=== PATIENT | female | born 1965 | race Caucasian/White ===

== ENCOUNTER 2016-09-23 08:27 | Day surgery (SDC) | payer OTHER ==
[~2016-09-23] VITALS: Ht 175.3 cm; Wt 118.0 kg
[~2016-09-23 08:27] MED LIST: 0.9% Sodium Chloride 1,000 ML IV SCH; ALBU8.5H2 INHALATION; FLUT15.815 NS; LOPE-147 PO; Sodium Chloride LOK Flush 10 mL Syringe IV PRN; ZAFI20TA14 PO; fentaNYL-PF 50 mCg/mL 2 mL Inj IVPUSH PRN
[2016-09-23 09:11] VITALS: BP 117/67; PULSE 73; RESP 14; O2SAT 97
--- NOTE | 2016-09-23 10:21 | PCM.ENDCOL ---
Colonoscopy Date of Service: Sep 23, 2016 Physician Darinel Lawton MD Pre Procedure Diagnosis: Screening Post Procedure Dx & Findings: Polyp hemorrhoids diverticuli Procedure Colonoscopy Prep adequate Withdrawal time 13 minutes After unremarkable rectal examination the Olympus video colonoscope was inserted patient's anal canal and was advanced to cecum. Landmarks were identified including the ileocecal valve and appendiceal orifice. Scope was withdrawn systematically. Visualized colonic mucosa showed healthy shiny mucosa with normal healthy-appearing vasculature. In the ascending colon, there was a 3 mm polyp that she was removed completely using cold snare. In the rectosigmoid junction, there were three 1 mm polyps which were all removed completely using cold forceps. In the sigmoid colon there were a few small diverticuli. In the rectum retroflexion was done which showed hemorrhoids. Anal canal was inspected carefully on the way out and hemorrhoids noted. Impression Polyps 4 status post complete removal Diverticuli Hemorrhoids Recommendation Repeat colonoscopy 3 years Diverticular diet Presedation Assessment Risks and Benefits Informed consent was obtained from the patient after all risks and benefits including but not limited to drug reaction, infection, pain, bleeding, perforation, as well as alternatives were discussed. Patient monitoring Continuous pulse oximetry, cardiac monitoring, blood pressure monitoring, IV access, and oxygen at 2L per nasal cannula. Periprocedural Fentanyl: Fentanyl 125mcg Incrementally Midazolam: Midazolam 7mg Incrementally Complications There were no periprocedural complications identified. Post Procedure Plan Post Procedure Recommendations 1. Restrict activities today. 2. Resume normal activities in the morning. 3. Resume medications. 4. Patient informed of normal post procedure side effects as bloating, drowsiness, blood streaking in the stool. 5. average risk CRCS. If colon polyps come back as: -Hyperplastic- can repeat colonoscopy in 10 years -Tubular adenoma- repeat colonoscopy in 5 years -Tubulovillous/villous adenoma- repeat colonoscopy in 3 years -If any dysplasia- return to clinic as soon as possible 6. Please don't hesitate to call me with any questions. Darinel Lawton MD Sep 23, 2016 10:21
[2016-09-23 10:28] VITALS: BP 97/62; PULSE 65; RESP 16; O2SAT 96
[2016-09-23 10:38] VITALS: BP 102/60; PULSE 65; RESP 14; O2SAT 96
[2016-09-23 10:43] VITALS: BP 102/71; PULSE 66; RESP 14; O2SAT 96
--- NOTE | 2016-09-24 13:53 | PATH ---
SURGICAL PATHOLOGY Attending Physician:Darinel Lawton M.D. CASE STATUS: Signed Out PATIENT NAME: NUBIA SHERWOOD PID: [id number] : 1965 DATE COLLECTED:09/23/2016 17:44 SPECIMEN: 1: Colon, Biopsy 2: Colon, Biopsy CLINICAL HISTORY: 1). ASCENDING POLYP 2). RECTAL/SIGMOID POLYP FINAL DIAGNOSIS: 1.ASCENDING COLON POLYP: SESSILE SERRATED ADENOMA. 2.RECTAL/SIGMOID COLON POLYP: HYPERPLASTIC POLYP. ICD10 CODE D12.6 GROSS DESCRIPTION: The specimen is received in two formalin filled containers labeled with the patient's name. 1). The specimen is sublabeled "ascending polyp" and consists of 3 portions of tissue which aggregate to 0.3 x 0.3 x 0.3 CM. The specimen is entirely submitted in cassette 1A. 2). The specimen is sublabeled "rectal/sigmoid polyp" and consists of 4 portions of tissue which aggregate to 0.4 x 0.4 x 0.3 CM. The specimen is entirely submitted in cassette 2A. 09/23/2016 [facility] MICRO DESCRIPTION: See diagnosis. ICD-9 CODES: CPT CODES: 1: 92400 2: 77961 Electronically Signed Out Tyrone Ibarar MD [facility] [address], [place] [address] Technical component performed at [facility], [facility] [address], [place], [address]
== END 2016-09-23 23:59 | disposition home or self-care (01) ==
LOC: END 08:27
PROVIDERS: ATTEND Internal Medicine
DX: Z12.11 Encounter for screening for malignant neoplasm of colon (principal); D12.2 Benign neoplasm of ascending colon; K62.1 Rectal polyp; K58.0 Irritable bowel syndrome with diarrhea; K64.9 Unspecified hemorrhoids
CPT/HCPCS: 45380; 45385; 88305; 99153; G0500; J2250; J3010; J7030

== ENCOUNTER 2017-04-23 13:59 | Emergency (ER) | payer OTHER ==
[~2017-04-23] VITALS: Ht 175.3 cm; Wt 116.8 kg
[~2017-04-23 13:59] MED LIST changes: -0.9% Sodium Chloride 1,000 ML IV SCH; -Sodium Chloride LOK Flush 10 mL Syringe IV PRN; -fentaNYL-PF 50 mCg/mL 2 mL Inj IVPUSH PRN
[2017-04-23 14:02] VITALS: BP 120/80; PULSE 80; RESP 24; O2SAT 96
--- NOTE | 2017-04-23 14:20 | ED.REPORT ---
HPI-Dyspnea / Wheezing Date of Service Apr 23, 2017 ED Provider: Ian Mejias MD A 51 year old female with a history of asthma and smoking presents to the ED complaining of shortness of breath. The pt began experiencing a cough, rhinorrhea and congestion yesterday, which was followed by wheezing, chest "tightness" and shortness of breath. Rest and use of her inhalers have no improved her symptoms. The pt has not used a nebulizer in several years. She denies recent surgery, history of blood clots, hormonal therapy or recent periods of immobilization. Nursing Notes Stated Complaint: SHORTNESS OF BREATH Chief Complaint: Respiratory Complaints Nursing Notes Reviewed: Yes Allergies: Coded Allergies: hydrocodone (Verified Allergy, Mild, VOMITTING, 04/23/17) Scheduled Fluticasone Propionate (Aller-Binh) 50 Mcg/Actuation [place].susp 2 SPRAYS NS DAILY Prednisone (PredniSONE) 20 Mg Tablet 60 MG PO DAILY Scheduled PRN Albuterol HFA (Proair HFA) 8.5 Gm Hfa.aer.ad 2 PUFFS INHALATION Q4H PRN PRN For Shortness of Breath Loperamide HCl (Imodium A-D) 2 Mg Capsule 2 MG PO DIRECTED PRN PRN For Diarrhea or Loose Stool Zafirlukast (Zafirlukast) 20 Mg Tablet 20 MG PO DIRECTED PRN PRN For Shortness of Breath General Time Seen by MD: 14:05 Chief Complaint Shortness of breath Hx Obtained From: Patient Arrived By: Walk-in Sudden in Onset?: No Onset Occurred: 1 day ago Symptom Duration: Since onset Recent Healthcare: No recent hospitalization, Recent doctor visit Similar Sx Previous: Yes Risk Factors PE Risk Stratification No Immobilization, No Previous DVT, No Surgery Last 60 Days Risk factors reviewed PERC Rule All PERC criteria "No", PERC rule satisfied Past Medical History Past Medical History asthma arthritis Past Surgical History foot sinus knee Reports: Appendectomy, , Tonsillectomy Reports: Tubal ligation Smoking History Current Every Day Smoker Social History Alcohol Use: "Social" Ambulatory Status Independent Review of Systems Review of Systems Note: chest "tightness" Constitutional: Denies: Fever Ears / Nose / Throat: Reports: Nasal congestion Respiratory: Reports: Non-productive cough, Shortness of breath, Wheezing Musculoskeletal: Denies: Back pain, Neck pain Skin: Denies Rash Allergy / Immune: Reports: Rhinorrhea Complete sys rev & neg: except as marked. GI: Denies: Abdominal pain, Vomiting Physical Exam Initial Vital Signs Vital Signs (First) Date Time Temp Pulse Resp B/P Pulse Ox O2 Delivery O2 Flow Rate FiO2 04/23/17 14:02 37.2 80 24 120/80 96 Room Air Initial VS: Reviewed General/Constitutional: Awake, Alert Neck: Atraumatic, Supple, Full range of motion Respiratory / Chest: Breath sounds = bilat moderate work of breathing no speaking in complete sentences bilateral wheezing Cardiovascular: Heart rate NL, Regular rhythm, Heart sounds NL ENT: Atraumatic, Airway patent, Mucous membranes moist Abdomen: Atraumatic, Soft, Non-tender Back: Atraumatic, Full range of motion Lower Extremity / Pelvis / MS: Atraumatic, Full range of motion Skin: Atraumatic, Color NL, No rash, Warm, Dry Neurologic: Oriented X3, Speech NL, No motor deficits, No sensory deficits Head / Eyes: Atraumatic, Normocephalic, PERRL, EOMI Upper Extremity / MS: Atraumatic, Full range of motion Psychiatric: Affect NL, Mood NL Interpretation & Diagnostics X-Ray Chest Interpretation Chest Xray Interpretation: IMPRESSION: Normal for age. Dictated by: Sravan Lehman M.D. on 04/23/2017 at 15:12 Approved by: Sravan Lehman M.D. on 04/23/2017 at 15:13 Interpretation / Wet Read by: Interpret - Radiologist Re-Eval/Medical Decision Med Decision/Clinical Course 63-year-old female history of asthma presenting with asthma exacerbation. Chest x-ray is clear. She had moderate respiratory distress on arrival which resolved with one nebulizer and steroids. She felt much better and requested to go home. She will be discharged with a steroid course and albuterol as needed. Return precautions given. Patient is agreeable and comfortable with this plan. Source of Hx: Old records Re-Evaluation/Progress : Time of Eval: 15:15 Patient Status: Condition improved Re-Evaluation/Progress Note: Pt rechecked, whose condition has significantly improved. The diagnosis and plan for discharge are discussed. The pt understands and agrees with the plan. All questions are addressed at this time. Counseled Regarding: Diagnosis, Lab results, Need for follow-up, When/why to return to ED Discharge & Departure Impression: Primary Impression: Asthma exacerbation Disposition: Home Discharge Condition All VS Reviewed: Yes Condition: Stable Patient Instructions: Asthma (ED) Additional Instructions: Thank you for entrusting us with your care. Your evaluation was reassuring. Take Prednisone daily for five days. Use your inhaler as needed. Call your primary care physician to arrange a follow up appointment in the next several days. Return to the emergency department if you develop any new or worsening symptoms such as shortness of breath, chest pain, cough, fever, weakness or lightheadedness. Referrals: María Vang PA-C (PCP) Scribe Attestation Portions of this note were transcribed by Jeannette Addison. I, Dr. Mejias personally performed the history, physical exam and medical decision-making; I reviewed and confirmed the accuracy of the information in the transcribed note. copies to: María Vang PA-C, Ben M MD Apr 23, 2017 14:20 JEANNETTE ADDISON Apr 23, 2017 14:31
[2017-04-23] MEDS ORDERED: MethylprednisoLONE Sodium Succinate 62.5 mg/mL 2 mL Inj IM ONE (14:30)
[2017-04-23] MEDS ORDERED: Albuterol-Ipratropium 3 mL Inhalation Solution NEB ONE (14:30)
--- NOTE | 2017-04-23 15:14 | DRSVH ---
PROCEDURE: X-RAY CHEST, TWO VIEWS ([id number]) INDICATIONS: cough, shortness of breath TECHNIQUE: 2 views of the chest were acquired. COMPARISON: [facility], CR, XR CHEST 1VW, 04/09/2016, 16:20. FINDINGS: Surgical changes and devices: None. Lungs and pleura: No pleural effusions or pneumothorax. Lungs are clear. Mediastinum: Mediastinal contours are normal. Heart size is normal. Bones and chest wall: No suspicious bony abnormalities. Soft tissues appear unremarkable. IMPRESSION: Normal for age. Dictated by: Sravan Lehman M.D. on 04/23/2017 at 15:12 Approved by: Sravan Lehman M.D. on 04/23/2017 at 15:13
[2017-04-23] MEDS ORDERED: PRE20 PO (15:33)
[2017-04-23 16:14] VITALS: BP 120/80; PULSE 80; RESP 24; O2SAT 97
== END 2017-04-23 16:15 | disposition home or self-care (01) ==
LOC: SED 13:59
DX: J45.901 Unspecified asthma with (acute) exacerbation (principal); F17.200 Nicotine dependence, unspecified, uncomplicated; J45.909 Unspecified asthma, uncomplicated; Z88.5 Allergy status to narcotic agent
CPT/HCPCS: 71020; 94664; 94799; 96372; 99284; J2930; J7620